=== PATIENT | male | born 1950 | race African-American/Black ===

== ENCOUNTER → 2018-06-11 | Outpatient (CLI) | payer OTHER | LOC: FIMAGING 16:34 | DX: N28.1 Cyst of kidney, acquired (principal); N40.0 Benign prostatic hyperplasia without lower urinary tract symptoms ==

== ENCOUNTER → 2018-07-10 | Outpatient (CLI) | payer OTHER ==
[~2018-07-10] MED LIST: GADOBUTROL 10 ML VIAL IVP ONE
== END ==
LOC: FIMAGING 06:27
DX: N18.3 Chronic kidney disease, stage 3 (moderate) (principal); N28.1 Cyst of kidney, acquired
CPT/HCPCS: 74183; A9585; 82565-PO

== ENCOUNTER → 2018-07-26 | Outpatient (CLI) | payer OTHER | LOC: FIMAGING 08:27 | PROVIDERS: ATTEND Internal Medicine Hematology & Oncology | DX: D47.2 Monoclonal gammopathy (principal); M50.33 Other cervical disc degeneration, cervicothoracic region; M51.34 Other intervertebral disc degeneration, thoracic region; M51.36 Other intervertebral disc degeneration, lumbar region; M51.37 Other intervertebral disc degeneration, lumbosacral region; M19.072 Primary osteoarthritis, left ankle and foot ==

== ENCOUNTER 2018-10-10 09:39 | Inpatient (IN) | payer OTHER ==
[2018-10-10] MEDS ORDERED: hydrALAZINE 20 MG/ML VIAL IVP PRN (09:59)
[2018-10-10] MEDS ORDERED: MIDAZOLAM 2 MG/2 ML VIAL IVP PRN (09:59)
[2018-10-10] MEDS ORDERED: MEPERIDINE 25 MG/ML SYR IVP PRN (09:59)
[2018-10-10] MEDS ORDERED: fentaNYL 100 MCG/2 ML INJ IVP PRN (09:59)
[2018-10-10] MEDS ORDERED: NALOXONE HCL 0.4 MG/ML INJ IVP PRN (09:59)
[2018-10-10] MEDS ORDERED: FLUMAZENIL 0.5 MG/5 ML MDV IVP PRN (09:59)
[2018-10-10 10:40] LABS: PLATELET COUNT 275 10^3/uL (150-400)
[2018-10-10 10:54] LABS: PROTIME(PATIENT) 13.4 SEC (12.0-15.0)
[2018-10-10] MEDS ORDERED: NALOXONE HCL 0.4 MG/ML INJ ONE (11:07)
[2018-10-10] MEDS ORDERED: FLUMAZENIL 0.5 MG/5 ML MDV IVP ONE (11:07)
[2018-10-10] MEDS ORDERED: fentaNYL 100 MCG/2 ML INJ ONE (11:08)
[2018-10-10] MEDS ORDERED: MIDAZOLAM 2 MG/2 ML VIAL ONE (11:08)
[2018-10-10] MEDS ORDERED: LIDOCAINE 1% 300 MG/30 ML SDV ONE (11:27)
--- NOTE | 2018-10-10 11:41 | PDPROPOC ---
Sedation Plan of Care Sedation Plan of Care: vital signs stable, mental status noted, patient educated of risks, benefits, alternatives, patient can tolerate sedation ASA Classification: ASA 2 Planned drugs: fentanyl, midazolam Mallampati Score: Class 1 Mallampati Reference Image: Patient passed 3-3-2 rule?: Yes
--- NOTE | 2018-10-10 11:41 | PDGENHP ---
History & Physical Chief Complaint: elevated CR History of Present Illness: unknown cause. no h/o significant renal issues. Pertinent Past, Social, Family History: non smoker, HTN, inguinal hernia repair Relevant Physical Exam: in no distress Cardiorespiratory Assessment: rrr, cta
[2018-10-10] MEDS ORDERED: ACETAMINOPHEN 325 MG TAB PO PRN (12:48)
[2018-10-10] MEDS ORDERED: ONDANSETRON 4 MG/2 ML VIAL IVP PRN (12:48)
--- NOTE | 2018-10-10 13:37 | PDRADPN ---
Radiology Procedure Note Date of Procedure: 10/10/18 Radiologist: Hyun Romero Anesthesia: IV Sedation Pre-op Diagnosis: elevated cr Post-op Diagnosis: same Indication: renal tissue sampling needed for dx Procedure: CT guided renal bx Finding(s): perinephric hematoma, coiled in CT. hematuria. Inf/Abcess present in the surg proc area at time of surgery?: No
[2018-10-10] MEDS ORDERED: IOTHALAMATE MEG (CYSTO-CONRAY II) 250 ML VIAL BLADIN ONE (13:58)
[2018-10-10] MEDS ORDERED: LIDOCAINE 2% JELLY 20 ML (UROJECT) ONE (14:19)
[2018-10-10] MEDS: NS 1,000 ML IV SCH ×2 (16:45→17:45)
--- NOTE | 2018-10-10 17:55 | PDCONSULT ---
Auto Hauler Note: [facility] hematuria Consult request: Joseph Romero MD HPI 67M s/p Percutaneous biopsy of kidney for eval of elevated Cr. Had acute post bx hematuria, 22F 3 way placed, CBI initiated. Urology consulted for eval and management of hematuria. Current pt describes bladder pain, bladder spasm, wanting to void but can't despite snell in place. Pt denies hx hematuria in past. Hx slow stream, takes flomax, which helps. Denies any other bladder issues in past. Hx HTN, but no CAD, or pulm issues. PMH as stated in HPI ROS 10pt ROS performed, as stated in HPI, otherwise neg FH/SH noncontributory Hgb 13.3<12.1<16 PE AFVSS Gen NAD A&O CV regular Abd soft Ext warm 22F [address], light pink color in tubing. Bladder Manually irrigated with 1L NS, 20cc clot removed, all clots small. Irrigant light pink at the end of manual irrigation, CBI reinitiated, irrigant then clear. Pt tolerated procedure well. A/P Post perc kidney bx hematuria. Hgb stable and improving. Urine clear now on CBI w small clots extracted. Dysuria/bladder spasms from remaining clot vs snell irritation of bladder. Continue conservative management w CBI overnight, manual irrigation of obstruction as needed by nursing. Repeat CYNTHIA in AM to eval for remaining clot. Suspect any clot will dissolve w CBI. B&O rectal suppository and oxybutynin for bladder spams. Please call me w questions. Dulce Maria Donohue MD [facility]
[2018-10-10] MEDS: OPIUM/BELLADONNA ALKALO SUPP PR PRN (18:57)
[2018-10-10] MEDS: OXYCODONE/APAP 5/325 TAB PO PRN (20:21)
[2018-10-10] MEDS: OXYBUTYNIN CHLORIDE 5 MG TAB PO SCH (20:22)
--- NOTE | 2018-10-10 21:05 | PDMN ---
Medical Necessity Medical necessity: [facility] or Procedure GR yo s/p renal bx via IR w/ post bx complications - acute post bx hematuria, urology consulted 3way cath placed, CBI initiated. Pt w/ bladder pain and spasms, scans show perinephric hematoma and blood clot in bladder. Admit to IP status for pain management, CBI, repeat scans and serial H/H. Pt will remain on IV fluids.
[2018-10-11] MEDS: OXYCODONE/APAP 5/325 TAB PO PRN ×4 (01:24→21:39)
[2018-10-11] MEDS: OPIUM/BELLADONNA ALKALO SUPP PR PRN ×3 (08:41→21:39)
[2018-10-11] MEDS: OXYBUTYNIN CHLORIDE 5 MG TAB PO SCH ×3 (08:41→21:35)
--- NOTE | 2018-10-11 09:46 | ASMTCMCOM ---
CM Note CM Note Notes: Patient is POD #1 kidney biopsy for elevated creatinine. He is being monitored on continuous bladder irrigation. He is normally independent, lives with his . No d/c needs anticipated. Current CM Discharge plan: independent Date Signed: 10/11/2018 09:46 AM Electronically Signed By:Jennifer Reaves RN
[2018-10-11] MEDS ORDERED: ALTEPLASE IV ONE ×2 (12:15→12:45)
[2018-10-11] MEDS ORDERED: NS IV ONE ×2 (12:15→12:45)
[2018-10-11] MEDS ORDERED: LORazepam 2 MG/ML INJ IVP ONE (14:15)
--- NOTE | 2018-10-11 17:17 | SOAPPROG ---
SOAP Progress Note Assessment/Plan: Assessment: Today's events: 1. AM US showed significant residual clot about 110 cc in volume, despite of overnight CBI. 2. TPA infusion x 2 hrs 1-3pm, then unclamped 3. Dr. Slaughter upsized 22Fr to 24Fr, and irrigated about 100cc clot out post TPA. 4. PM US shows about 10cc clot residual. Patient also definitively able to tolerate more bladder saline infusion via CBI during scan. I think we are making good progress. TPA, although 1/2 life is 6 min, tends to bind to clot and continue to work up to 12 hrs. The long tip of the CBI catheter is poking at the dome of bladder, and may be causing some of the spasm. Manipulating catheter causes significant discomfort, so left it as is. Plan: 1. Appreciate Dr. Slaughter's care and expertise. 2. Will continue CBI tonight. There's a high likelihood that residual clot will resolve with that. 3. As long as CBI output continues to just be lightly pink, will plan on d/c snell in am. D/C home after that when he can urinate naturally. D/W Dr. Slaughter, patient's daughter, and . 10/11/18 17:12 Subjective: Spasm when the catheter is manipulated or when pressure is applied to bladder. Otherwise doing OK. Had a rough night. Objective: Vital Signs Temp Pulse Resp BP Pulse Ox 36.9 C 88 14 150/106 H 97 10/11/18 15:14 10/11/18 15:14 10/11/18 15:14 10/11/18 15:14 10/11/18 15:14 Laboratory Results 10/11/18 04:46 10/10/18 10:15 10/10/18 10/11/18 10/12/18 05:59 05:59 05:59 Intake Total 1400 0 Output Total 1600 Balance -200 0 PT 13.4 SEC (12.0-15.0) 10/10/18 10:15 INR 1.00 (0.83-1.16) 10/10/18 10:15 Labs noted. US scan results noted. CBI output with light pink tinge. - Pending Discharge Pending Discharge Within 24 Hours: Yes Pending Discharge Date: 10/12/18 Pending Discharge Time: 11:00 ICD10 Worksheet Patient Problems: Problems Problem Status Onset Hematuria Acute - ICD10 Problem Qualifiers (1) Hematuria Qualifiers: Hematuria type: gross Qualified Code(s): R31.0 - Gross hematuria
[2018-10-11] MEDS ORDERED: traMADol 50 MG TAB PO PRN (17:21)
[2018-10-11] MEDS: TAMSULOSIN HCL 0.4 MG CAP PO SCH (17:46)
[2018-10-11] MEDS: HYDROCHLOROTHIAZIDE 50 MG TAB PO SCH (17:58)
--- NOTE | 2018-10-11 20:05 | SOAPPROG ---
SOAP Progress Note Assessment/Plan: Assessment: Left Renal biopsy with subsequent bleed into collecting system resulting in clot in bladder. s/p TPA bladder instillation and then manual clot extraction with near complete resolution of clot per latest bladder u/s. Plan: Continue conservative management w CBI overnight, small clot likely will dissolve overnight. Then OK to remove snell tomorrow AM. General diet. Bowel regimen. Continue meds for bladder spams, but hold after MN due to possible side effect of urinary retention. 10/11/18 20:00 10/11/18 20:10 Objective: Vital Signs Temp Pulse Resp BP Pulse Ox 37.5 C 92 16 116/81 H 92 10/11/18 19:47 10/11/18 19:47 10/11/18 19:47 10/11/18 19:47 10/11/18 19:47 Laboratory Results 10/11/18 04:46 10/10/18 10:15 10/10/18 10/11/18 10/12/18 05:59 05:59 05:59 Intake Total 1400 0 Output Total 1600 500 Balance -200 -500 PT 13.4 SEC (12.0-15.0) 10/10/18 10:15 INR 1.00 (0.83-1.16) 10/10/18 10:15 Gen NAD A*O CV regular Lungs Normal effort Abd soft Ext warm, no edema 22F [address], urine bright red and thick after TPA. Then manually irrigated some through this clot but felt that irrigation would improve w larger bore catheter. Using sterile technique, exchanged snell for 24F, able to irrigate about 100cc clot. Pt tolerated this well. Irrigant light pink and then clear when starting CBI. ICD10 Worksheet Patient Problems: Problems Problem Status Onset Hematuria Acute
[2018-10-12] MEDS: OXYCODONE/APAP 5/325 TAB PO PRN (08:43)
[2018-10-12] MEDS: TAMSULOSIN HCL 0.4 MG CAP PO SCH (08:44)
--- NOTE | 2018-10-12 08:52 | ASMTLACE ---
LACE Length of stay for Answers: 2 days current admission Acuity / Level of Answers: Yes Care: Did the patient have an inpatient admission? Comorbidities - select Answers: Other Notes: HTN all that apply # of Emergency department Answers: 0 visits in the last 6 months Score: 6 Date Signed: 10/12/2018 08:51 AM Electronically Signed By:Jennifer Reaves RN
[2018-10-12] MEDS ORDERED: SENNOSIDES/DOCUSATE SODIUM TAB PO SCH (09:00)
[2018-10-12] MEDS ORDERED: POLYETHYLENE GLYCOL 3350 17 GM PKT PO SCH (09:00)
[2018-10-12] MEDS: HYDROCHLOROTHIAZIDE 50 MG TAB PO SCH (10:54)
--- NOTE | 2018-10-12 10:58 | SOAPPROG ---
SOAP Progress Note Assessment/Plan: Assessment: Left Renal biopsy with subsequent bleed into collecting system resulting in clot in bladder. s/p TPA bladder instillation and then manual clot extraction with near complete resolution of clot per latest bladder u/s. Urine light pink, snell out. Plan: Voiding trial, call if PVR >300ml or if difficulty voiding. One dose Levaqin for post snell removal UTI prevention. Follow up w me in 2 weeks to discuss LUTs. 10/11/18 20:00 10/11/18 20:10 10/12/18 10:55 Subjective: NAEON CBI on and off due to pink urine. +BM Told diet Ambulating Feeling well Objective: Vital Signs Temp Pulse Resp BP Pulse Ox 36.8 C 75 16 115/72 95 10/12/18 07:45 10/12/18 07:45 10/12/18 07:45 10/12/18 07:45 10/12/18 07:45 Laboratory Results 10/11/18 04:46 10/10/18 10:15 10/11/18 10/12/18 10/13/18 05:59 05:59 05:59 Intake Total 1400 0 Output Total 0288 629 2961 Balance -200 -500 -1250 PT 13.4 SEC (12.0-15.0) 10/10/18 10:15 INR 1.00 (0.83-1.16) 10/10/18 10:15 GEN NAD A*O CV regular Lungs Normal effort Abd soft Ext warm snell in place, urine clear on very light CBI gtt. Attempted irrigation w 60ml, but bladder spasm occurred. Snell removed. - Pending Discharge Pending Discharge Within 24 Hours: Yes Pending Discharge Date: 10/13/18 Pending Discharge Time: 11:00 ICD10 Worksheet Patient Problems: Problems Problem Status Onset Hematuria Acute
[2018-10-12 15:44] VITALS: BP 136/82
[2018-10-13] MEDS ORDERED: HYDROCHLOROTHIAZIDE 25 MG TAB PO SCH (09:00)
== END 2018-10-12 16:31 | disposition home or self-care (01) | DRG 921 ==
LOC: FIMAGING 09:39 → F3E 13:52 → F1N 14:19
PROVIDERS: ADMIT Radiology Diagnostic Radiology; ATTEND Radiology Diagnostic Radiology
PROC: 0T9B70Z Drainage of Bladder with Drainage Device, Via Natural or Artificial Opening (ICD-10-PCS; 2018-10-10)
PROC: 3E1K78Z Irrigation of Genitourinary Tract using Irrigating Substance, Via Natural or Artificial Opening (ICD-10-PCS; 2018-10-10)
PROC: 0TB13ZX Excision of Left Kidney, Percutaneous Approach, Diagnostic (ICD-10-PCS; principal; 2018-10-10 15:25)
PROC: 3E1K78Z Irrigation of Genitourinary Tract using Irrigating Substance, Via Natural or Artificial Opening (ICD-10-PCS; 2018-10-11)
DX: N99.840 Postprocedural hematoma of a genitourinary system organ or structure following a genitourinary system procedure (principal); R31.9 Hematuria, unspecified; I10 Essential (primary) hypertension
CPT/HCPCS: 88313-90; 88346-90; 88348-90; C1769; J0360; J2060; J2250; J2310; J2997; J3010; Q9961